=== PATIENT | female | born 1975 ===

== ENCOUNTER 2023-03-25 06:00 | Day surgery (SDC) | payer OTHER ==
[~2023-03-25] VITALS: Ht 170.2 cm; Wt 111.6 kg
[~2023-03-25 06:00] MED LIST: CRESTOR20 MG PO; GABAPENTIN100 M2 PO; GLIMEPIRIDE4 MG; HUMULIN R100 UNIT/1 SUBCUTANEO; HYZAAR 100-12.1 EACH PO; MAGNESIUM250 M1 PO; SYNJARDY XR 251 EACH PO; SYNTHROID200 MCG PO; VITAMIN D310 MCG/1 M PO; [UNRECOGNIZED DRUG - OTHER]
[2023-03-25] MEDS ORDERED: TRAM1TAB98 PO (10:01)
[2023-03-25] MEDS ORDERED: NEURONTIN300 MG PO (13:12)
== END 2023-03-25 14:30 | disposition home or self-care (01) ==
LOC: CIR.AMB 06:00
PROVIDERS: ATTEND Surgery
DX: C50.411 Malignant neoplasm of upper-outer quadrant of right female breast (principal); I10 Essential (primary) hypertension; Z20.822 Contact with and (suspected) exposure to COVID-19